=== PATIENT | female | born 1955 | race Caucasian/White ===

== ENCOUNTER 2017-11-03 08:15 | Emergency (ER) | payer BC, OTHER ==
[2017-11-03 09:51] LABS: URINE PH (Dip) POC 5.5 (5.0-8.5)
[2017-11-03 09:51] LABS: URINE BLOOD (Dip) POC Trace-intact (NEGATIVE); URINE GLUCOSE (Dip) POC Negative (NEGATIVE); URINE KETONES (Dip) POC Negative (NEGATIVE); URINE LEUKOCYTE EST (Dip) POC Trace (NEGATIVE); URINE NITRITE (Dip) POC Negative (NEGATIVE); URINE TOTAL PROTEIN POC Negative (NEGATIVE)
[2017-11-03] MEDS: SOD CHLORIDE 0.9% 1,000 ML IV (10:06)
[2017-11-03] MEDS: KETOROLAC 30 MG INJ IV (10:06)
[2017-11-03] MEDS: METOCLOPRAMIDE 10 MG INJ IV (10:06)
== END 2017-11-03 11:33 | disposition home or self-care (01) ==
LOC: FTE 08:15
DX: R51 Headache (principal); R11.0 Nausea
CPT/HCPCS: 70450; 81003; 96374; 96375; 99285-25

== ENCOUNTER → 2019-01-23 | Outpatient (CLI) | payer MEDICARE, BC | END | disposition home or self-care (01) | LOC: HKI 10:09 | DX: M70.52 Other bursitis of knee, left knee (principal); M76.9 Unspecified enthesopathy, lower limb, excluding foot; E11.8 Type 2 diabetes mellitus with unspecified complications; N20.0 Calculus of kidney; K21.9 Gastro-esophageal reflux disease without esophagitis; F17.210 Nicotine dependence, cigarettes, uncomplicated | CPT/HCPCS: 73564 ==